=== PATIENT | female | born 2000 | race Caucasian/White ===

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

== ENCOUNTER 2022-06-06 16:10 | Outpatient (CLI) | payer OTHER ==
[~2022-06-06] VITALS: Ht 152.4 cm; Wt 48.0 kg
[~2022-06-06 16:10] MED LIST: ONDA4TAB6 PO
[2022-06-06 16:39] VITALS: BP 114/65
[2022-06-06] MEDS ORDERED: ACETAMINOPHEN TAB 650MG DOSE (2X325MG) PO ONE (17:00)
== END 2022-06-06 17:35 | disposition home or self-care (01) ==
LOC: M LDO 16:10
PROVIDERS: ATTEND Obstetrics & Gynecology
DX: O9A.212 Injury, poisoning and certain other consequences of external causes complicating pregnancy, second trimester (principal); S20.211A Contusion of right front wall of thorax, initial encounter; W01.0XXA Fall on same level from slipping, tripping and stumbling without subsequent striking against object, initial encounter; Y92.9 Unspecified place or not applicable; O26.892 Other specified pregnancy related conditions, second trimester; R25.2 Cramp and spasm; Z3A.20 20 weeks gestation of pregnancy; M54.2 Cervicalgia
CPT/HCPCS: 59025; G0463

== ENCOUNTER 2022-06-30 12:19 | Outpatient (CLI) | payer OTHER ==
[~2022-06-30] VITALS: Ht 152.4 cm; Wt 47.5 kg
[2022-06-30 12:37] VITALS: BP 117/62
[2022-06-30] MEDS ORDERED: OMEP10CASR PO (12:40)
[2022-06-30] MEDS ORDERED: HOME MED LIST COMPLETE! XX SCH (12:40)
[2022-06-30] MEDS ORDERED: FLUCONAZOLE 50MG TABLET PO ONE (13:40)
== END 2022-06-30 14:05 | disposition home or self-care (01) ==
LOC: M LDO 12:19
PROVIDERS: ATTEND Obstetrics & Gynecology
DX: O23.592 Infection of other part of genital tract in pregnancy, second trimester (principal); Z3A.24 24 weeks gestation of pregnancy; O99.342 Other mental disorders complicating pregnancy, second trimester; F41.9 Anxiety disorder, unspecified
CPT/HCPCS: 59025; 76815; 81000; 81015; 87086; G0463

== ENCOUNTER 2022-07-07 18:47 | Emergency (ER) | payer OTHER ==
[~2022-07-07 18:47] MED LIST changes: +OMEP10CASR PO
[2022-07-07 19:33] LABS: BASO % 0.4 % (0.0-1.0); EOS % 0.1 % (0.0-3.0); HEMATOCRIT 29.9 % (36.0-47.0); LYMPH # 0.8 10^3/uL (1.5-5.0); LYMPH % 8.6 % (24.0-44.0); MEAN CORPUSCULAR HEMOGLOBIN 30.7 pg (27.0-33.0); MEAN CORPUSCULAR HGB CONC 33.4 g/dl (32.0-36.5); MEAN CORPUSCULAR VOLUME 91.7 fl (80.0-96.0); MONO # 0.5 10^3/uL (0.0-0.8); MONO % 5.4 % (2.0-8.0); NEUTROPHILS # 7.8 10^3/uL (1.5-8.5); NEUTROPHILS % 84.7 % (36.0-66.0); PLATELET COUNT, AUTOMATED 210 10^3/uL (150-450); RED BLOOD COUNT 3.26 10^6/uL (4.00-5.40); WHITE BLOOD COUNT 9.2 10^3/uL (4.0-10.0)
[2022-07-07 20:08] LABS: ALBUMIN 2.9 GM/DL (3.2-5.2); ALT/SGPT 16 U/L (12-78); BILIRUBIN,DIRECT 0.2 MG/DL (0.0-0.2); BILIRUBIN,TOTAL 0.6 MG/DL (0.2-1.0); BLOOD UREA NITROGEN 5 MG/DL (7-18); CALCIUM LEVEL 8.2 MG/DL (8.5-10.1); CARBON DIOXIDE LEVEL 19 MEQ/L (21-32); CHLORIDE LEVEL 108 MEQ/L (98-107); CREATININE FOR GFR 0.42 MG/DL (0.55-1.30); GLUCOSE, FASTING 68 MG/DL (70-100); LIPASE 63 U/L (73-393); POTASSIUM SERUM 3.7 MEQ/L (3.5-5.1); SODIUM LEVEL 138 MEQ/L (136-145); TOTAL PROTEIN 5.8 GM/DL (6.4-8.2)
[2022-07-07 20:09] LABS: THYROID STIMULATING HORMONE 0.487 uIU/ML (0.463-3.98)
[2022-07-07] MEDS ORDERED: PROMETHAZINE 25MG/ML 1ML VIAL IV ONE (20:30)
[2022-07-07] MEDS ORDERED: NS 500 ML IV ONE (21:05)
[2022-07-07] MEDS ORDERED: DEXTROSE 50% 50 ML SYRINGE IV STA (22:02)
[2022-07-07] MEDS ORDERED: D5W/0.45% SODIUM CHLORIDE 1,000 ML IV SCH (22:15)
[2022-07-07] MEDS ORDERED: SERT25TA21 PO (22:28)
[2022-07-07] MEDS ORDERED: HOME MED LIST COMPLETE! XX SCH (22:30)
[2022-07-07 23:00] VITALS: BP 106/58
[2022-07-07 23:05] LABS: RSV AMPLIFICATION NEGATIVE (NEGATIVE)
[2022-07-07 23:15] VITALS: BP 104/55
[2022-07-07 23:30] VITALS: BP 98/51
[2022-07-08 00:53] LABS: HEMOGLOBIN A1c 4.8 %
== END 2022-07-07 22:33 | disposition admitted as inpatient to this hospital (09) ==
LOC: M ED 18:47 → EDBD 18:47 → UNDOADMOB 18:48 → M ED INP 18:48 → M ED 22:33 → M LDI 07-08 → M ED INP 07-08 → UNDODISOB 07-08 01:15
DX: O99.810 Abnormal glucose complicating pregnancy (principal); O26.813 Pregnancy related exhaustion and fatigue, third trimester; R55 Syncope and collapse; F41.9 Anxiety disorder, unspecified; Z79.899 Other long term (current) drug therapy; Z3A.00 Weeks of gestation of pregnancy not specified
CPT/HCPCS: 80048; 80076; 83036; 83690; 84439; 84443; 85025; 85379; 87631; 93005; 93041; 93970; 94760; 96365; 96375; 99285; J2550

== ENCOUNTER 2022-07-07 23:34 | Outpatient (CLI) | payer OTHER ==
[~2022-07-07 23:34] MED LIST changes: +SERT25TA21 PO
== END 2022-07-08 01:15 | disposition home or self-care (01) ==
LOC: M LDO 23:34 → M LDI 07-08 → M LDO 07-08 01:15
PROVIDERS: ATTEND Obstetrics & Gynecology
DX: O26.892 Other specified pregnancy related conditions, second trimester (principal); Z3A.25 25 weeks gestation of pregnancy; R55 Syncope and collapse; R06.02 Shortness of breath; R25.2 Cramp and spasm
CPT/HCPCS: 59025; 80048; 80076; 81000; 81015; 83036; 83690; 84439; 84443; 85025; 85379; 87088; 87631; 93005; 93041; 93970; 94760; 96365; 96375; 99285; G0463; J2550

== ENCOUNTER 2022-08-13 12:35 | Outpatient (CLI) | payer OTHER ==
[~2022-08-13] VITALS: Ht 152.4 cm; Wt 51.3 kg
[2022-08-13] MEDS ORDERED: PHEN25IN3 PO (12:55)
[2022-08-13] MEDS ORDERED: OMEP10CASR PO (12:56)
[2022-08-13 12:59] VITALS: BP 104/66
[2022-08-13] MEDS ORDERED: HOME MED LIST COMPLETE! XX SCH (13:00)
== END 2022-08-13 14:27 | disposition home or self-care (01) ==
LOC: M LDO 12:35
PROVIDERS: ATTEND Advanced Practice Midwife
DX: O26.893 Other specified pregnancy related conditions, third trimester (principal); R25.2 Cramp and spasm; Z3A.30 30 weeks gestation of pregnancy; Z79.899 Other long term (current) drug therapy
CPT/HCPCS: 59025; G0463